=== PATIENT | male | born 1975 | race Caucasian/White ===

== ENCOUNTER 2020-12-23 12:49 | Emergency (ER) | payer OTHER, SELFPAY ==
[2020-12-23 13:02] VITALS: BP 155/92; PULSE 96; RESP 14; TEMP 36.8; O2SAT 97; BMI 27.3
--- NOTE | 2020-12-23 13:05 | DI.RAD.S_ITS ---
PROCEDURE: XR KNEE LT 3V INDICATIONS: knee swelling,r/t arthritis TECHNIQUE: 3 views of the knee were acquired. COMPARISON: None. FINDINGS: Bones: No fractures or dislocations. Mild tricompartmental osteoarthritis is seen more prominent in medial femoral tibial compartment. No suspicious bony lesions. Soft tissues: Moderate to large suprapatellar joint effusion is seen. No suspicious soft tissue calcifications. IMPRESSION: Mild tricompartmental osteoarthritis and moderate to large suprapatellar joint effusion. No gross acute fracture or dislocation. Dictated by: Mickey Cedillo M.D. on 12/23/2020 at 13:28 Approved by: Mickey Cedillo M.D. on 12/23/2020 at 13:37
--- NOTE | 2020-12-23 17:42 | ED.EXTPRO ---
HPI - Extremity Problem <Kd Pineda PA-C - Last Filed: 12/23/20 20:37> General Chief complaint: Extremity Problem,Nontraumatic Stated complaint: Reactive arthritis- needs knee drained Time Seen by Provider: 12/23/20 17:16 Source: patient Mode of arrival: Ambulatory Limitations: no limitations History of Present Illness HPI Narrative: Julio presents today with chief complaint of worsening left knee swelling and discomfort that started a few days ago. Patient reports that he has chronic history of reactive arthritis and reports that this is a flare up. He was seen by his PCP and prescribed a short steroid burst which seemed to have helped his symptoms. However, after he finished the steroid burst therapy the inflammation came back. His PCP prescribed a prescription of Celebrex which he has not yet started. Patient reports pain with movement and decreased range of motion secondary swelling. He denies any overlying rash, fever, numbness or tingling, trauma to the area, surgeries to that knee, or any other acute concerns or complaints at this time. Related Data Allergies Allergy/AdvReac Type Severity Reaction Status Date / Time No Known Drug Allergies Allergy Verified 12/23/20 13:02 Review of Systems <Kd Pineda PA-C - Last Filed: 12/23/20 20:37> Review of Systems Narrative: As per HPI Patient History <Kd Pineda PA-C - Last Filed: 12/23/20 20:37> Social History Smoking Status: Unknown if ever smoked Smoking Status: Unknown if ever smoked alcohol intake frequency: holidays/special occasions only Substance Use Type: does not use Exam <JORGE A Higgins Last Filed: 12/23/20 20:37> Narrative Exam Narrative: Exam Narrative: Const General: cooperative, healthy appearing, comfortable, no acute distress, well developed and well groomed Nutritional Appearance: average body habitus Orientation: alert and oriented x3 HENMT Head: normal to inspection and atraumatic Ears: hearing grossly normal bilaterally Nose: external nose normal and nares normal Face and sinus: normal facial exam Neck Neck: normal visual inspection and supple Resp Effort & Inspection: normal respiratory effort, able to speak in complete sentences, no audible wheezes, not labored, no nasal flaring and no respiratory distress Extremities Lower extremities exposed. Gross knee effusion noted. No obvious bony tenderness. No overlying skin abnormalities. Intact range of motion. Strength normal. Skin: No rash or lesions noted. Neuro General: alert, oriented x3, limping gait, tone normal and moves all extremities Cognition: normal cognition Speech: speech normal Gait: Limping gait Psych Appearance: grossly normal and well kempt Mental Status: mental status grossly normal Speech and Movement: speech and movement normal Mood: congruent mood Affect: normal affect Initial Vital Signs Initial Vital Signs: Vital Signs Temperature 98.3 F 12/23/20 13:02 Pulse Rate 96 H 12/23/20 13:02 Respiratory Rate 14 12/23/20 13:02 Blood Pressure 155/92 H 12/23/20 13:02 Pulse Oximetry 97 12/23/20 13:02 <Nazanin Cherry MD - Last Filed: 12/30/20 07:22> Initial Vital Signs Initial Vital Signs: Vital Signs Temperature 98.3 F 12/23/20 13:02 Pulse Rate 96 H 12/23/20 13:02 Respiratory Rate 14 12/23/20 13:02 Blood Pressure 155/92 H 12/23/20 13:02 Pulse Oximetry 97 12/23/20 13:02 Procedures <Kd Pineda PA-C - Last Filed: 12/23/20 20:37> Joint Aspiration Joint Asp./Inject. 1: Side of body: left Joint Aspirated: knee Ultrasound Guidance: Yes Skin Prep: Chlorhexidine Local Anesthetic: lidocaine 1% Amount of anesthesia used (mL): 3 Needle Size Used: 18G Fluid Obtained: clear Total fluid obtained (mL): 165 Patient Tolerated Procedure: Well Complications: none Additional Comments: Band-Aid placed, hemostasis achieved, knee Curly wrapped. Course <Kd Pineda PA-C - Last Filed: 12/23/20 20:37> Orders Ordered: Discontinued Medications Ketorolac Tromethamine (Ketorolac 30 Mg/Ml Vial) 30 mg IM NOW ONE Stop: 12/23/20 18:38 Last Admin: 12/23/20 18:40 Dose: 30 mg Documented by: ERNESTO Vital Signs Vital signs: Vital Signs - 8 hr 12/23/20 13:02 12/23/20 18:49 Temperature 98.3 F Pulse Rate 96 H 86 Respiratory Rate 14 16 Blood Pressure 155/92 H 136/81 Pulse Oximetry 97 99 <Nazanin Cherry MD - Last Filed: 12/30/20 07:22> Orders Ordered: Discontinued Medications Ketorolac Tromethamine (Ketorolac 30 Mg/Ml Vial) 30 mg IM NOW ONE Stop: 12/23/20 18:38 Last Admin: 12/23/20 18:40 Dose: 30 mg Documented by: ERNESTO Vital Signs Vital signs: Vital Signs - 8 hr 12/23/20 13:02 12/23/20 18:49 Temperature 98.3 F Pulse Rate 96 H 86 Respiratory Rate 14 16 Blood Pressure 155/92 H 136/81 Pulse Oximetry 97 99 MDM - Extremity (Nontraumatic) <Kd Pineda PA-C - Last Filed: 12/23/20 20:37> Lab Data Labs: Lab Results 12/23/20 12/23/20 Range/Units 18:30 18:30 Fluid Color Yellow Fluid Appearance Slightly cloudy Fluid RBC 2468 /uL Fld Tot Nucleated Cell 76680 /uL Fluid Polynuclear WBCs 70 % Fluid Mononuclear WBCs 30 % Fluid Eosinophils 0 % Fluid Other Cells 0 % Fluid Crystals None present (NONE) Body Fluid Clot No clots present MDM Narrative Medical decision making narrative: Patient is well-appearing at this time. He has longstanding history of reactive arthritis of his left knee and has had multiple joint effusions. There are no physical examination findings that would suggest infectious source at this time and he has no history of trauma. No systemic signs of illness. Will treat with anti-inflammatories, compression, ice and PCP follow-up. Strict return precautions were discussed with the patient. Patient verbalizes understanding and agrees to plan and has no further concerns at this time. Thank you A [id number] system was used with the dictation of this note. Please disregard any spelling or grammatical errors. <Nazanin Cherry MD - Last Filed: 12/30/20 07:22> Lab Data Labs: Lab Results 12/23/20 12/23/20 Range/Units 18:30 18:30 Fluid Color Yellow Fluid Appearance Slightly cloudy Fluid RBC 2468 /uL Fld Tot Nucleated Cell 83256 /uL Fluid Polynuclear WBCs 70 % Fluid Mononuclear WBCs 30 % Fluid Eosinophils 0 % Fluid Other Cells 0 % Fluid Crystals None present (NONE) Body Fluid Clot No clots present Discharge Plan Departure Patient Disposition: Home Clinical Impression: Acute joint effusion Instructions: DI for Wound Infection Activity Restrictions/Additional Instructions: It was very nice to meet you this evening. Please keep the Curly bandage on to apply pressure to the knee and use the anti-inflammatories that your PCP prescribed you starting tomorrow. If you experience fever, rash, increased swelling, increased pain or have any other acute concerns or complaints do not hesitate to return immediately for re-evaluation. Thank you Kd Pineda PA-C <Nazanin Cherry MD - Last Filed: 12/30/20 07:22> Cosign ED Attending Cosignature Attestation: I was immediately available in the department for consultation throughout this patient's visit. I agree with documentation as above. Nazanin Cherry MD
[2020-12-23] MEDS: KETOROLAC 30 MG/ML VIAL IM (18:40)
[2020-12-23 18:49] VITALS: BP 136/81; PULSE 86; RESP 16; O2SAT 99
[2020-12-23 19:06] LABS: Body Fluid Red Blood Cells 2468 /uL; Body Fluid Tot Nucleated Cells 14448 /uL
[2020-12-23 19:15] LABS: Body Fluid Appearance SLIGHTLY CLOUDY; Body Fluid Clotted? NO CLOTS PRESENT; Body Fluid Color YELLOW; Crystals Body Fluid - IN-HOUSE NONE Present
[2020-12-23 19:58] LABS: Eosinophils Body Fluid 0 %; Mononuclear WBC Body Fluid 30 %; Other Cells Body Fluid 0 %; Polynuclear WBC Body Fluid 70 %
== END 2020-12-23 18:52 | disposition home or self-care (01) ==
PROVIDERS: Emergency Provider Physician Assistant
DX: M25.462 Effusion, left knee (principal)
CPT/HCPCS: 20610; 73562; 87070; 87075; 87205; 89051; 89060; 96372; 99284; J1885

== ENCOUNTER → 2024-08-17 13:08 | Outpatient (CLI) | payer OTHER, SELFPAY ==
--- NOTE | 2024-08-17 13:11 | DI.MRI.S_ITS ---
PROCEDURE: MR SHOULDER LT WO CON INDICATIONS: left shoulder pain TECHNIQUE: Noncontrast oblique coronal T2 fast spin echo with fat saturation, oblique sagittal T1 spin echo and T2 fast spin echo with fat saturation, axial T1 spin echo and T2 fast spin echo with fat saturation through the shoulder. COMPARISON: None. FINDINGS: Image quality: Excellent. Bones and bursae: Marked increased T2 weighted signal/edema in the left distal clavicle and mild edema in the acromion commonly related to degenerative joint disease, less likely to represent bone contusion or nondisplaced fracture without low T1 fracture line. Other infectious/inflammatory processes considered less likely. Moderate acromioclavicular degenerative changes, capsular hypertrophy, small osteophytes, joint space narrowing. Type 2 laterally downsloping acromion. No pathologic subacromial-subdeltoid or subcoracoid bursal fluid is present. Rotator cuff: Mild increased T2 weighted signal and thickening of the distal subscapularis muscle and tendon and to a lesser degree distal supraspinatus, suspected tendinopathy without full-thickness tear. No myotendinous retraction. The infraspinatus and teres minor are grossly normal. Sagittal images demonstrate no muscle atrophy. Capsule and soft tissues: Labrum demonstrates [id number] degenerative changes with diffuse labral thinning, some irregularity of the anterior-superior labrum may be related to chronic SLAP tear. The long head of the biceps tendon demonstrates normal location and morphology. IMPRESSION: Marked edema in the distal clavicle most likely related to degenerative changes and subchondral edema or other process as discussed above. Degenerative changes with diffuse labral thinning and some irregularity possible chronic SLAP tear. Tendinopathy of the distal subscapularis and supraspinatus. Dictated by: Mehran Holt M.D. on 08/18/2024 at 9:42 Approved by: Mehran Holt M.D. on 08/18/2024 at 10:00
== END ==
DX: M25.512 Pain in left shoulder (principal); R60.0 Localized edema
CPT/HCPCS: 73221

== ENCOUNTER → 2024-10-25 09:13 | Outpatient (CLI) | payer OTHER, SELFPAY ==
--- NOTE | 2024-10-25 | DI.MRI.S_ITS ---
PROCEDURE: MR KNEE LT WO CON INDICATIONS: KNEE, BACK PAIN TECHNIQUE: Noncontrast sagittal PD fast spin echo and T2 fast spin echo with fat saturation, sagittal 3-D FLASH with fat saturation; coronal T1 spin echo and PD fast spin echo with fat saturation, and axial PD fast spin echo with fat saturation through the knee. COMPARISON: [facility], MR, MR KNEE RT WO CON, 10/25/2024, 9:45. FINDINGS: Image quality: Excellent. Menisci: Medial extrusion of the medial meniscus is present. Linear horizontal high T2 signal intensity traverses the peripheral 3rd of the extruded medial meniscal fragment, demonstrating inferior articular surface extension, indicating a tract meniscal tear. Lateral meniscus is intact. Cruciate ligaments: Moderate fluid signal within the mid and superior aspect of the posterior cruciate ligament. Anterior cruciate ligament is intact. Medial structures: The medial collateral ligament appears intact. Visualized portions of the pes anserinus tendons appear normal. No abnormal bursal fluid. Lateral structures: The lateral collateral ligament demonstrates mild T2 signal elevation at the femoral origin. The long and short heads of the biceps femoris tendon appear intact. The popliteus tendon appears normal. Iliotibial band appears normal. Anterior structures: The quadriceps and patellar tendons appear intact. Patellar alignment is normal. No femoral trochlear dysplasia or ventral trochlear prominence. No edema in the infrapatellar fat pad. Bones and cartilage: No bone marrow contusions or fractures. Mild tricompartmental periarticular osteophyte formation. Moderate articular cartilage loss diffusely overlies the weight-bearing aspects of the medial femoral condyle and medial tibial plateau. Superimposed high-grade articular cartilage loss overlies the posterior weight- bearing and nonweightbearing aspect of the medial femoral condyle. Moderate articular cartilage loss overlies the patellar apex. Joint space: There is a small knee joint effusion and a trace Kendrick's cyst. Normal appearing synovial plicae are incidentally noted. IMPRESSION: 1. Trapped medial meniscal tear. 2. Tricompartmental osteoarthritis with associated articular cartilage loss. 3. Partial-thickness anterior cruciate ligament tear. 4. Low-grade lateral collateral ligament tear. Dictated by: Binh Farias M.D. on 10/27/2024 at 11:48 Approved by: Binh Farias M.D. on 10/27/2024 at 11:51
--- NOTE | 2024-10-25 | DI.MRI.S_ITS ---
PROCEDURE: MR LUMBAR SPINE WO CON INDICATIONS: KNEE, BACK PAIN TECHNIQUE: Noncontrast sagittal T1 spin echo and T2 fast echo, sagittal STIR, and T2 fast spin echo through the lumbar spine. In cases with scoliosis, additional coronal T2 fast spin echo may be performed. COMPARISON: None. FINDINGS: Image quality: Excellent. Alignment and Curvature: There is normal bony alignment. Bone Marrow: Marrow is of normal overall signal. No acute vertebral body compression fractures. Spinal Cord: Conus medullaris terminates at the T12 level. Visualized cord demonstrates normal signal and size. Paraspinous Soft Tissues: No paravertebral masses. T12-L1: Normal appearance. L1-L2: Normal appearance. L2-L3: Normal appearance. L3-L4: Mild disc bulge, no spinal stenosis seen L4-L5: Mild disc bulge, no spinal stenosis seen L5-S1: Normal appearance. IMPRESSION: Minimal degenerative changes, no spinal stenosis or disc extrusion seen. Dictated by: Troy Richter M.D. on 10/26/2024 at 19:01 Approved by: Troy Richter M.D. on 10/26/2024 at 19:06
--- NOTE | 2024-10-25 | DI.MRI.S_ITS ---
PROCEDURE: MR KNEE RT WO CON INDICATIONS: KNEE, BACK PAIN TECHNIQUE: Noncontrast sagittal PD fast spin echo and T2 fast spin echo with fat saturation, sagittal 3-D FLASH with fat saturation; coronal T1 spin echo and PD fast spin echo with fat saturation, and axial PD fast spin echo with fat saturation through the knee. COMPARISON: None. FINDINGS: Image quality: Excellent. Menisci: The medial and lateral menisci demonstrate normal morphology and internal signal. The meniscal root ligaments appear intact. Cruciate ligaments: The anterior and posterior cruciate ligaments appear intact. Medial structures: The medial collateral ligament appears intact. Visualized portions of the pes anserinus tendons appear normal. No abnormal bursal fluid. Lateral structures: The lateral collateral ligament demonstrates mild T2 signal elevation at the femoral origin. The long and short heads of the biceps femoris tendon appear intact. The popliteus tendon appears normal. Iliotibial band appears normal. Anterior structures: The quadriceps and patellar tendons appear intact. Patellar alignment is normal. No femoral trochlear dysplasia or ventral trochlear prominence. No edema in the infrapatellar fat pad. Bones and cartilage: No bone marrow contusions or fractures. Mild T2 signal elevation within the articular cartilage overlying the patellar apex. Joint space: There is physiologic knee joint fluid. No Kendrick's cyst. Normal appearing synovial plicae are incidentally noted. IMPRESSION: 1. No internal derangement. 2. Mild patellofemoral compartment articular cartilage loss. 3. Low-grade tearing of the lateral collateral ligament . Dictated by: Binh Farias M.D. on 10/27/2024 at 11:46 Approved by: Binh Farias M.D. on 10/27/2024 at 11:48
== END ==
DX: S83.421A Sprain of lateral collateral ligament of right knee, initial encounter (principal); M17.12 Unilateral primary osteoarthritis, left knee; S83.512A Sprain of anterior cruciate ligament of left knee, initial encounter; S83.422A Sprain of lateral collateral ligament of left knee, initial encounter; S83.242A Other tear of medial meniscus, current injury, left knee, initial encounter; M25.562 Pain in left knee; M25.561 Pain in right knee; M25.462 Effusion, left knee; M54.50 Low back pain, unspecified; X58.XXXA Exposure to other specified factors, initial encounter
CPT/HCPCS: 72148; 73721